=== PATIENT | male | born 1955 | race Caucasian/White ===

== ENCOUNTER 2018-06-02 09:45 | Outpatient (RCR) | payer OTHER | END 2018-08-31 | disposition home or self-care (01) | LOC: ONC 09:45 | PROVIDERS: ATTEND Radiology Radiation Oncology | DX: C61 Malignant neoplasm of prostate (principal) | CPT/HCPCS: 99204 ==

== ENCOUNTER 2018-11-04 05:49 | Outpatient (CLI) | payer OTHER ==
[~2018-11-04] VITALS: Ht 177.8 cm; Wt 81.6 kg
[2018-11-04] MEDS ORDERED: BICA50TA5 PO (12:11)
[2018-11-04] MEDS ORDERED: LISI-552 PO (12:23)
== END 2018-11-04 12:29 | disposition home or self-care (01) ==
LOC: PREOP 05:49
PROVIDERS: ATTEND Radiology Radiation Oncology
DX: Z01.818 Encounter for other preprocedural examination (principal)

== ENCOUNTER 2018-11-17 11:35 | Day surgery (SDC) | payer OTHER ==
[~2018-11-17] VITALS: Ht 177.8 cm; Wt 81.6 kg
[~2018-11-17 11:35] MED LIST: BICA50TA5 PO; LISI-552 PO
[2018-11-17 12:00] VITALS: BP 188/86
[2018-11-17] MEDS ORDERED: LEVOFLOXACIN 500 MG/100 ML IV 100 ML IV ONE (12:00)
[2018-11-17] MEDS ORDERED: LACTATED RINGERS 1,000 ML IV PRN (12:00)
--- NOTE | 2018-11-17 12:23 | Progress Note-Pre Operative ---
Pre-Operative Progress Note H&P Reviewed The H&P was reviewed, patient examined and no changes noted. Date Seen by Provider: Nov 17, 2018 Time Seen by Provider: 12:00 Date H&P Reviewed: Nov 17, 2018 Time H&P Reviewed: 12:00 Pre-Operative Diagnosis: Prostate cancer cT2c, PSA 26, Becky 7 (4+3) ARGENTINA ESPINOZA MD Nov 17, 2018 12:23
[2018-11-17] MEDS ORDERED: ACET1TAB43 PO (12:27)
[2018-11-17] MEDS ORDERED: CIPR-226 PO (12:27)
--- NOTE | 2018-11-17 12:29 | Discharge Inst-Simple/Standard ---
Discharge Inst-Standard Discharge Medications New, Converted or Re-Newed RX: Other (scripts given to ) Patient Instructions/Follow Up Plan of Care/Instructions/FU: 1)follow up appointment and hormone injection with Dr. Mike 12/14/18 at 9:00 a.m. 2)post implant ct scan at [facility] cancer center 12/17/18 at 10:00 a.m. Activity as Tolerated: Yes Discharge Diet: No Restrictions Other Inst to Patient Please instruct on perez catheter removal for Thursday 11/23 early a.m. If unable to void contact Dr. Mike's office. ARGENTINA ESPINOZA MD Nov 17, 2018 12:29
[2018-11-17] MEDS ORDERED: MIDAZOLAM 2 MG/2 ML (VERSED) VIAL ONE (12:55)
[2018-11-17] MEDS ORDERED: BACITRACIN OINTMENT 28 GM TUBE ONE (13:12)
[2018-11-17] MEDS ORDERED: ONDANSETRON 4 MG/2 ML (SDV) Z0FRAN ONE ×2 (13:24→17:08)
[2018-11-17] MEDS ORDERED: fentaNYL INJECTION 100 MCG/2 ML AMP ONE (13:24)
[2018-11-17] MEDS ORDERED: proPOfol 200 MG/20 ML (DIPRIVAN) VIAL IV ONE (13:24)
[2018-11-17] MEDS ORDERED: LIDOCAINE PF 2% 5 ML (XYLOCAINE) VIAL ONE (13:24)
[2018-11-17] MEDS ORDERED: SEVOFLURANE (ULTANE) 15 ML INHAL SOLN ONE ×4 (13:24→13:27)
[2018-11-17] MEDS ORDERED: DEXAMETHASONE 10 MG/ML (DECADRON) 1 ML VIAL ONE (13:24)
[2018-11-17] MEDS ORDERED: morphine INJ 10 MG/ML 1ML (SYR OR VIAL) ONE (15:06)
[2018-11-17] MEDS ORDERED: morphine INJ 10 MG/ML 1ML (SYR OR VIAL) IVP ONE (15:15)
[2018-11-17] MEDS ORDERED: ONDANSETRON 4 MG/2 ML (SDV) Z0FRAN IVP PRN (15:15)
--- NOTE | 2018-11-17 15:22 | Progress Note-Post Operative ---
Post-Operative Progess Note Surgeon (s)/Alarm Signal Operator (s) Surgeon ARGENTINA ESPINOZA MD Alarm Signal Operator: Clayton DEE MD Pre-Operative Diagnosis Prostate cancer cT2c, PSA 26, [place] 7 (4+3) Post-Operative Diagnosis Same as pre-op Procedure & Operative Findings Date of Procedure 11/17/18 Procedure Performed/Findings 1) 67% Cesium 131 permanent prostate seed implant 2) Cystogram 3) Injection of biodegradable hydrogel prostate-rectal spacer utilizing the SpaceOAR system Prostate volume 22 cc Anesthesia Type General Estimated Blood Loss Estimated blood loss (mL): Minimal Specimens/Packing Specimens Removed None Packing: None ARGENTINA ESPINOZA MD Nov 17, 2018 15:22
--- NOTE | 2018-11-17 15:36 | Anesthesia-General Post-Op ---
General Patient Condition Mental Status/LOC: Same as Preop Cardiovascular: Satisfactory Nausea/Vomiting: Absent Respiratory: Satisfactory Pain: Controlled Complications: Absent Post Op Complications Complications None Follow Up Care/Instructions Patient Instructions None needed. Anesthesia/Patient Condition Patient Condition Patient is doing well, no complaints, stable vital signs, no apparent adverse anesthesia problems. No complications reported per nursing. MEEK YEBOAH CRNA Nov 17, 2018 15:36
[2018-11-17 15:45] VITALS: BP 151/96
[2018-11-17 16:15] VITALS: BP 157/74
[2018-11-17 16:45] VITALS: BP 147/85
--- NOTE | 2018-11-17 17:30 | NUR ---
AT [address] ESPINOZA TO REPORT PATIENT'S NAUSEA AND VOMITING. ADMINISTERED ZOFRAN 4MG IV X1 AT 1713. PATIENT VOMITED CLEAR LIQUID AFTER GETTING DRESSED. PHONED DR. ESPINOZA AT APPROX 1725 TO REPORT PATIENT'S NAUSEA/VOMITING, RECEIVED ORDER TO CALL IN ZOFRAN 4MG PO Q4HR PRN #12 TO PATIENT'S PHARMACY. PATIENT STATES HE FEELS BETTER AFTER 2ND TIME VOMITING. PATIENT WALKING IN THE HALLS, TOLERATING WELL.
[2018-11-17 17:45] VITALS: BP 139/86
[2018-11-17 17:50] VITALS: BP 139/86
[2018-11-17] MEDS ORDERED: ONDANSETRON 4 MG/2 ML (SDV) Z0FRAN IVP ONE (18:15)
--- NOTE | 2018-11-17 19:01 | Diagnostic Imaging Report ---
INDICATION: Prostate carcinoma therapy. EXAMINATION: Fluoroscopy was provided for Dr. Lazaro for prostate brachytherapy. A total of 15 seconds of fluoroscopy was utilized. FINDINGS: Images demonstrate multiple radiation seed implants within the prostate gland. IMPRESSION: Fluoroscopy for brachytherapy. Dictated by: Dictated on workstation # [id number]
== END 2018-11-17 17:50 | disposition home or self-care (01) ==
LOC: SDC 11:35
PROVIDERS: ATTEND Radiology Radiation Oncology
DX: C61 Malignant neoplasm of prostate (principal); I10 Essential (primary) hypertension; M10.9 Gout, unspecified; Z79.899 Other long term (current) drug therapy
CPT/HCPCS: 76965; 77290; 77318; 77332; 77370; 77470; 77778

== ENCOUNTER 2018-12-17 09:36 | Outpatient (RCR) | payer OTHER ==
[~2018-12-17 09:36] MED LIST changes: +ACET1TAB43 PO; +CIPR-226 PO
[2018-12-17 10:03] LABS: CREATININE SERUM 1.31 MG/DL (0.60-1.30)
== END 2018-12-27 | disposition home or self-care (01) ==
LOC: ONC 09:36
PROVIDERS: ATTEND Radiology Radiation Oncology
DX: Z51.0 Encounter for antineoplastic radiation therapy (principal); C61 Malignant neoplasm of prostate
CPT/HCPCS: 36415; 76873; 77290; 82565; 84520